=== PATIENT | male | born 1980 | race Caucasian/White ===

== ENCOUNTER 2019-06-27 10:10 | Emergency (ER) | payer OTHER ==
[2019-06-27] MEDS ORDERED: Ketorolac 30 MG/ML SDV IM ONE (10:32)
[2019-06-27] MEDS ORDERED: Ondansetron 4 MG/2 ML SDV IVPUSH ONE (10:32)
[2019-06-27] MEDS ORDERED: Sodium Chloride 0.9% 1,000 ML IV ONE (10:32)
--- NOTE | 2019-06-27 11:26 | CT ---
CT abdomen and pelvis Technique: Multiple axial sections were obtained were obtained from above the dome of the diaphragm inferiorly through the pubic symphysis. Intravenous and oral contrast was not utilized. Study has been performed as a ureteral stone protocol. Findings: Left ureter is mildly prominent in size. This finding is caused by an obstructing distal left ureteral stone measuring 4.7 mm in size. This stone lies close to the UVJ. No other ureteral calculi are seen. Multiple small (measuring less than 5 mm) nonobstructing calculi are noted within the left kidney. Visualized lung bases show nothing acute. Diffuse fatty infiltration is noted within the liver. Spleen appears within normal limits. Adrenal glands show no nodule. Pancreas is within normal limits. Surgical clips are seen from prior cholecystectomy. Aorta shows no aneurysm. No retroperitoneal adenopathy or mesenteric abnormalities are seen. Appendix is seen which is normal in size. No pelvic mass or adenopathy is seen. No free fluid or inflammatory change is seen. Bone window settings were reviewed. No acute finding is seen. 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 Impression: 1. Obstructing 4.7 mm stone within the distal left ureter. This is located close to the UVJ. 2. Small nonobstructing calculi within the left kidney. 3. Fatty infiltration within the liver. 4. Other findings believed to be chronic and incidental as noted above. Diagnostic code #3 This report was dictated in MDT
[2019-06-27 11:27] LABS: BLOOD UREA NITROGEN,BUN 19 mg/dL (7.0-18.0); CARBON DIOXIDE,CO2 28.2 mmol/L (21.0-32.0); CHLORIDE,CL 104 mmol/L (98-107); GLUCOSE RANDOM 146 mg/dL (74-106); POTASSIUM,K 4.7 mmol/L (3.5-5.1); SODIUM,NA 142 mmol/L (136-148)
--- NOTE | 2019-06-27 11:40 | EDM.PDOC ---
ED HPI GENERAL MEDICAL PROBLEM - General Chief Complaint: Abdominal Pain Stated Complaint: ABDOMINAL PAIN Time Seen by Provider: 06/27/19 10:17 Source of Information: Reports: Patient History Limitations: Reports: No Limitations - History of Present Illness INITIAL COMMENTS - FREE TEXT/NARRATIVE: HISTORY OF PRESENT ILLNESS: Patient is a 39-year-old male who complains of left flank pain with radiation to the groin. Pain began this morning and initially was located in his left CVA region. He has no history of kidney stones. Pain is rated as 8 out of 10 in severity. Denies any urinary symptoms. No hematuria or dysuria. Denies any fevers or chills. Reports nausea but no emesis. No diarrhea. Patient has history of cholecystectomy, no other abdominal surgeries. Has recently been on antibiotics of amoxicillin for sinusitis and developed mild diarrhea. No melena or hematochezia. REVIEW OF SYSTEMS: Other than the symptoms associated with the present events, the following is reported with regard to recent health: General: (-) fever. HENT: (-) sore throat. Respiratory: (-) cough. Cardiovascular: (-) chest pain. GI: (+) abdominal pain. : (-) urinary complaints. Musculoskeletal: (-) other aches or pains. Endocrine: (-) generalized weakness. Neurological: (-) localized weakness. Skin: (-) rash PAST MEDICAL HISTORY: reviewed as per nursing notes SOCIAL HISTORY: reviewed as per nursing notes, MEDICATIONS: Per nurse's note ALLERGIES: Per nurse's note, reviewed by me PHYSICAL EXAMINATION: GENERALIZED APPEARANCE: well developed, well nourished in mild to moderate distress VITAL SIGNS: Per nurse's note, reviewed by me SKIN: Warm, dry; (-) cyanosis; (-) rash. HEAD: (-) scalp swelling, (-) tenderness. EYES: (-) conjunctival pallor, (-) scleral icterus. ENMT: (-) stridor; mucous membranes moist. NECK: (-) tenderness, (-) stiffness, CHEST AND RESPIRATORY: (-) rales, (-) rhonchi, (-) wheezes; breath sounds equal bilaterally. HEART AND CARDIOVASCULAR: (-) irregularity; (-) murmur, (-) gallop. ABDOMEN AND GI: Soft; (+) left flank tenderness, (-) guarding, (-) rebound, (- ) palpable masses, EXTREMITIES: (-) deformity, (-) edema. NEURO AND PSYCH: Alert. Cranial nerves grossly intact; strength symmetric. gait steady DIAGNOSTICS: CT abd/pelvis: as read by radiologist, report reviewed by mysef Labs ordered and reviewed. EMERGENCY DEPARTMENT COURSE AND TREATMENT: Patient's condition improved during Emergency Department evaluation. Given IVF, Toradol, Zofran. Pain resolved on reevaluation. He is afebrile. No evidence of UTI on urinalysis. Labs reviewed by myself. Patient states he is urinating without difficulty. Will be discharged home on pain medication. Must follow-up with urologist on Saturday. Patient given referral. Return immediately with any new or worsening symptoms. Given discharge precautions. PLAN AND FOLLOW-UP: Patient received written and verbal instructions regarding this condition. Return to ED immediately with any new or worsening symptoms. Follow up to be arranged by patient with urologist in 1-2 days for further evaluation. Given discharge precautions. Patient expressed verbal understanding. abd and right flank Pain Score (Numeric/FACES): 8 - Related Data Allergies Allergy/AdvReac Type Severity Reaction Status Date / Time No Known Allergies Allergy Verified 06/27/19 10:22 Home Meds: Home Meds Acetaminophen/oxyCODONE [Percocet 325-5 MG] 1 each PO Q6HR #10 tab 06/27/19 [Rx] Amoxicillin [Amoxil] 06/27/19 [History] Ketorolac [Toradol] 10 mg PO TID PRN #15 tab 06/27/19 [Rx] Past Medical History - Past Health History Medical/Surgical History: Denies Medical/Surgical History - Past Surgical History GI Surgical History: Reports: Cholecystectomy Social & Family History - Family History Family Medical History: Noncontributory - Tobacco Use Smoking Status *Q: Never Smoker - Recreational Drug Use Recreational Drug Use: No ED ROS GENERAL - Review of Systems Review Of Systems: See Below (see dictation) ED EXAM, GENERAL - Physical Exam Exam: See Below (see dictation) Course - Vital Signs Last Recorded V/S: Last Vital Signs Temp 96.6 F L 06/27/19 11:20 Pulse 75 06/27/19 11:20 Resp 18 06/27/19 11:20 BP 126/72 06/27/19 11:20 Pulse Ox 99 06/27/19 11:20 - Orders/Labs/Meds Labs: Laboratory Tests 06/27/19 06/27/19 06/27/19 Range/Units 10:52 10:52 11:23 WBC 9.54 (4.0-11.0) K/uL RBC 4.91 (4.50-5.90) M/uL Hgb 15.6 (13.0-17.0) g/dL Hct 46.2 (38.0-50.0) % MCV 94.1 (80.0-98.0) fL MCH 31.8 (27.0-32.0) pg MCHC 33.8 (31.0-37.0) g/dL RDW Std Deviation 46.3 (28.0-62.0) fl RDW Coeff of Dutch 13 (11.0-15.0) % Plt Count 265 (150-400) K/uL MPV 10.70 (7.40-12.00) fL Neut % (Auto) 80.3 H (48.0-80.0) % Lymph % (Auto) 12.3 L (16.0-40.0) % [place] % (Auto) 6.3 (0.0-15.0) % Eos % (Auto) 0.8 (0.0-7.0) % Baso % (Auto) 0.3 (0.0-1.5) % Neut # (Auto) 7.7 H (1.4-5.7) K/uL Lymph # (Auto) 1.2 (0.6-2.4) K/uL [place] # (Auto) 0.6 (0.0-0.8) K/uL Eos # (Auto) 0.1 (0.0-0.7) K/uL Baso # (Auto) 0.0 (0.0-0.1) K/uL Nucleated RBC % 0.0 /100WBC Nucleated RBCs # 0 K/uL Sodium 142 (136-148) mmol/L Potassium 4.7 (3.5-5.1) mmol/L Chloride 104 (98-107) mmol/L Carbon Dioxide 28.2 (21.0-32.0) mmol/L BUN 19 H (7.0-18.0) mg/dL Creatinine 1.3 (0.8-1.3) mg/dL Est Cr Clr Drug Dosing 90.46 mL/min Estimated GFR (MDRD) > 60.0 ml/min Glucose 146 H (74-106) mg/dL Calcium 9.4 (8.5-10.1) mg/dL Total Bilirubin 0.4 (0.2-1.0) mg/dL AST 31 (15-37) IU/L ALT 84 H (14-63) IU/L Alkaline Phosphatase 62 (46-116) U/L Total Protein 8.3 H (6.4-8.2) g/dL Albumin 4.7 (3.4-5.0) g/dL Globulin 3.6 (2.6-4.0) g/dL Albumin/Globulin Ratio 1.3 (0.9-1.6) Urine Color YELLOW Urine Appearance CLEAR Urine pH 6.0 (5.0-8.0) Ur Specific [place] >= 1.030 (1.001-1.035) Urine Protein NEGATIVE (NEGATIVE) mg/dL Urine Glucose (UA) NEGATIVE (NEGATIVE) mg/dL Urine Ketones NEGATIVE (NEGATIVE) mg/dL Urine Occult Blood NEGATIVE (NEGATIVE) Urine Nitrite NEGATIVE (NEGATIVE) Urine Bilirubin NEGATIVE (NEGATIVE) Urine Urobilinogen 0.2 (<2.0) EU/dL Ur Leukocyte Esterase NEGATIVE (NEGATIVE) Meds: Medications Discontinued Medications Generic Name Dose Route Start Last Admin Trade Name Freq PRN Reason Stop Dose Admin Sodium Chloride 1,000 mls @ 1,000 mls/hr 06/27/19 10:32 06/27/19 10:42 Normal Saline IV 06/27/19 11:31 1,000 mls/hr .Bolus ONE Administration Ketorolac Tromethamine 30 mg 06/27/19 10:32 06/27/19 10:42 Toradol IM 06/27/19 10:33 30 mg ONETIME ONE Administration Ondansetron HCl 4 mg 06/27/19 10:32 06/27/19 10:42 Zofran IVPUSH 06/27/19 10:33 4 mg ONETIME ONE Administration Departure - Departure Time of Disposition: 12:07 Disposition: Home, Self-Care 01 Condition: Good Clinical Impression: Kidney stone - Discharge Information *PRESCRIPTION DRUG MONITORING PROGRAM REVIEWED*: Not Applicable *COPY OF PRESCRIPTION DRUG MONITORING REPORT IN PATIENT GIOVANA: Not Applicable Prescriptions: Acetaminophen/oxyCODONE [Percocet 325-5 MG] 1 each PO Q6HR #10 tab Ketorolac [Toradol] 10 mg PO TID PRN #15 tab PRN Reason: Pain Instructions: Kidney Stones, [id number] Referrals: PCP,Marissa [Primary Care Provider] - Daria Aguilar DO [Ordering Only Provider] - 2 Days Forms: ED Department Discharge Additional Instructions: The following information is given to patients seen in the emergency department who are being discharged to home. This information is to outline your options for follow-up care. We provide all patients seen in our emergency department with a follow-up referral. The need for follow-up, as well as the timing and circumstances, are variable depending upon the specifics of your emergency department visit. If you don't have a primary care physician on staff, we will provide you with a referral. We always advise you to contact your personal physician following an emergency department visit to inform them of the circumstance of the visit and for follow-up with them and/or the need for any referrals to a consulting specialist. The emergency department will also refer you to a specialist when appropriate. This referral assures that you have the opportunity for follow-up care with a specialist. All of these measure are taken in an effort to provide you with optimal care, which includes your follow-up. Under all circumstances we always encourage you to contact your private physician who remains a resource for coordinating your care. When calling for follow-up care, please make the office aware that this follow-up is from your recent emergency room visit. If for any reason you are refused follow-up, please contact the [facility] Department at and asked to speak to the emergency department charge nurse. Sepsis Event Note - Evaluation Sepsis Screening Result: No Definite Risk - Focused Exam Vital Signs: Vital Signs Temp Pulse Resp BP Pulse Ox 06/27/19 11:20 96.6 F L 75 18 126/72 99 06/27/19 10:19 96.4 F L 84 20 138/88 98 Date Exam was Performed: 06/27/19 Time Exam was Performed: 12:07
== END 2019-06-27 12:20 | disposition home or self-care (01) ==
LOC: MW.ED 10:10
DX: N20.2 Calculus of kidney with calculus of ureter (principal)
CPT/HCPCS: 36415; 74176; 80053; 81003; 85025; 96361; 96374; 96375; 99284; J1885; J2405; J7030

== ENCOUNTER 2021-12-08 07:11 | Day surgery (SDC) | payer BC ==
[~2021-12-08 07:11] MED LIST: Lactated Ringers 1,000 ML IV SCH
[2021-12-08] MEDS ORDERED: Propofol 200 MG/20 ML SDV ONE (07:14)
[2021-12-08] MEDS ORDERED: fentaNYL 100 MCG/2 ML SDV ONE (07:14)
[2021-12-08] MEDS ORDERED: Lidocaine 2% 5 ML SDV ONE (08:41)
[2021-12-08] MEDS ORDERED: Lactated Ringers 1,000 ML IV SCH (09:15)
== END 2021-12-08 09:46 | disposition home or self-care (01) ==
LOC: MW.SDS 07:11
PROVIDERS: ATTEND Surgery
DX: K29.00 Acute gastritis without bleeding (principal); K21.00 Gastro-esophageal reflux disease with esophagitis, without bleeding; K29.50 Unspecified chronic gastritis without bleeding; K31.89 Other diseases of stomach and duodenum; K44.9 Diaphragmatic hernia without obstruction or gangrene; E66.9 Obesity, unspecified; F17.290 Nicotine dependence, other tobacco product, uncomplicated; Z90.49 Acquired absence of other specified parts of digestive tract; Z68.30 Body mass index [BMI] 30.0-30.9, adult; Z79.899 Other long term (current) drug therapy
CPT/HCPCS: 43239; J2704; J3010; J7120; 00731